=== PATIENT | female | born 1935 | race Caucasian/White ===

== ENCOUNTER 2022-05-29 09:30 | Inpatient (IN) | payer MEDICARE, BC ==
[~2022-05-29] VITALS: Ht 154.9 cm; Wt 50.8 kg
--- NOTE | 2022-05-29 09:35 | NUR ---
Pt came in via [facility]. Pt c/o headache and rapid HR. Able to go to the bathroom with minimum assistance. Hooked to the monitor. EKG and labs done. Pt's mood is angry, HR of 152, afib, with BP of 125/78. Pt is speaking in full sentences. Able to maintain saturation of 95% onRA. Pt was given minimum dos of diltiazem 10mg. Pt has low platelets in the past per daughter. She receives vit K and has hx of lymphoma.
[2022-05-29] MEDS ORDERED: DILTIAZEM HCL 25 MG IV ONE ×2 (09:53→11:02)
[2022-05-29] MEDS ORDERED: DILTIAZEM HCL IV 10 MG in IV DEXTROSE 5% 100 ML IV ONE (10:00)
[2022-05-29] MEDS ORDERED: IV NORMAL SALINE 1000 ML BAG IV ONE (10:00)
--- NOTE | 2022-05-29 10:10 | NUR ---
Pt responded to to Cardizem amd HR went from 150's to 120's.
[2022-05-29 10:17] LABS: HEMATOCRIT 40.1 % (31.2-41.9); MEAN CORPUSCULAR HEMOGLOBIN 29.3 uug (24.7-32.8); MEAN CORPUSCULAR VOLUME 87.8 fL (75.5-95.3); PLATELET COUNT (AUTO) 75 K/uL (179-408)
[2022-05-29 10:30] LABS: CARBON DIOXIDE 31 mmol/L (21-32); CHLORIDE 101 mmol/L (98-107); CREATININE 0.7 mg/dL (0.6-1.3); GLUCOSE 88 mg/dL (74-106); POTASSIUM 3.4 mmol/L (3.5-5.1); UREA NITROGEN, BLOOD 16 mg/dL (7-18)
[2022-05-29] MEDS ORDERED: DILTIAZEM HCL IV 15 MG in IV DEXTROSE 5% 100 ML IV ONE (10:30)
[2022-05-29 10:34] LABS: *BILIRUBIN,URIN NEGATIVE (NEGATIVE); *BLOOD, URINE 3+ (NEGATIVE); *CLARITY,URINE SLIGHTLY CLOUDY (CLEAR); *COLOR,URINE LIGHT YELLOW (YELLOW); *KETONES,URINE NEGATIVE (NEGATIVE); *UROBILINOGEN,URINE 0.2 E.U./dl (NORMAL); LEUKOCYTE ESTERASE ,URINE NEGATIVE (NEGATIVE); NITRITE, URINE NEGATIVE (NEGATIVE); PH,URINE 7.5 (5.0-8.0); UGLUCOSE NEGATIVE (NEGATIVE)
[2022-05-29 10:38] LABS: ALANINE AMINOTRANSFERASE 66 U/L (14-59); ALKALINE PHOSPHATASE 479 U/L (50-136); ASPARTATE AMINOTRANSFERASE 63 U/L (15-37); BILIRUBIN,DIRECT 0.5 mg/dL (0.0-0.2); BILIRUBIN,TOTAL 1.4 mg/dL (0.2-1.0); TOTAL PROTEIN, SERUM 7.1 g/dL (6.4-8.2)
--- NOTE | 2022-05-29 11:00 | NUR ---
2nd dose diltiazem 15mg given. Pt responded with HR from 162 to 106.
[2022-05-29] MEDS ORDERED: ACETAMINOPHEN 325 MG TABLET PO ONE (11:15)
[2022-05-29] MEDS ORDERED: DILTIAZEM HCL 25 MG IV IV ONE ×2 (11:15)
[2022-05-29] MEDS ORDERED: DILTIAZEM HCL IV 125 MG in IV NORMAL SALINE 100 ML IV PRN ×2 (11:15→12:45)
[2022-05-29] MEDS ORDERED: LORA-258 PO (11:21)
[2022-05-29] MEDS ORDERED: IBRU70CA PO (11:21)
[2022-05-29] MEDS ORDERED: FAMO-132 PO (11:21)
[2022-05-29] MEDS ORDERED: ACETAMINOPHEN 325 MG TABLET ONE (11:27)
[2022-05-29] MEDS ORDERED: IV NORMAL SALINE 1,000 ML IV STA (11:54)
[2022-05-29 12:14] LABS: BACTERIA,URINE NONE SEEN /HPF (NONE SEEN); RBC,URINE 50-80 /HPF (0-3); SQUAMOUS EPITHELIAL CELL,UR FEW /HPF (NONE SEEN); WBC,URINE 0-3 /HPF (0-3)
[2022-05-29] MEDS ORDERED: ONDANSETRON ODT 4 MG TAB.RAPDIS SL ONE (12:15)
[2022-05-29] MEDS ORDERED: LORAZEPAM 0.5 MG TABLET PO PRN (12:45)
[2022-05-29] MEDS ORDERED: MORPHINE SULFATE 2 MG/1 ML DISP.SYRIN IV PRN (12:45)
[2022-05-29] MEDS ORDERED: ACETAMINOPHEN 325 MG TABLET PO PRN (12:45)
[2022-05-29] MEDS ORDERED: hydrALAZINE HCL 20 MG/1 ML VIAL IV PRN (12:45)
[2022-05-29] MEDS ORDERED: ONDANSETRON 4 MG/2 ML VIAL IV PRN (12:45)
--- NOTE | 2022-05-29 13:47 | NUR ---
Pt rolled over to transition. Alma/[employer] Estimator and Anita DIAZ aware. Pt will be under the care of Anisa Overton with KARLIE status. Placed pt on a comfortable in-patient bed and attached to pure-wick to wall suction and tolerated well.
[2022-05-29] MEDS ORDERED: diphenhydrAMINE 50 MG/1 ML VIAL IV PRN (15:30)
[2022-05-29] MEDS ORDERED: HYDROMORPHONE 1 MG/1 ML DISP.SYRIN IV PRN (15:30)
[2022-05-29] MEDS ORDERED: AMIODARONE HCL IV 150 MG in IV DEXTROSE 5% 100 ML IV ONE (16:00)
[2022-05-29] MEDS: AMIODARONE HCL IV 450 MG in IV DEXTROSE 5% 250 ML IV PRN (16:15)
[2022-05-29] MEDS: DOCUSATE SODIUM 100 MG CAPSULE PO SCH (17:00)
[2022-05-29] MEDS: FAMOTIDINE 20 MG TABLET PO SCH (17:00)
[2022-05-29] MEDS ORDERED: DOCUSATE SODIUM 100 MG CAPSULE PO ONE (18:52)
[2022-05-29] MEDS ORDERED: FAMOTIDINE 20 MG TABLET ONE (18:52)
[2022-05-29] MEDS ORDERED: ENOXAPARIN SODIUM 60 MG/0.6 ML DISP.SYRIN SQ SCH (21:00)
[2022-05-29] MEDS ORDERED: POTASSIUM BICARBONATE/CIT AC 25 MEQ TABLET.EFF PO ONE (21:15)
[2022-05-29 21:45] VITALS: BP 148/74
--- NOTE | 2022-05-29 21:52 | NUR ---
Transfered to 3rd floor via gurn[facility].
[2022-05-29] MEDS: MAGNESIUM SULFATE/D5W 100 ML IV SCH ×2 (22:15→23:01)
[2022-05-30 00:21] VITALS: BP 135/68
[2022-05-30] MEDS ORDERED: POTASSIUM BICARBONATE/CIT AC 25 MEQ TABLET.EFF PO ONE (00:30)
--- NOTE | 2022-05-30 00:31 | NUR ---
[email or web address] unable to give earlier, MD dutta.
[2022-05-30] MEDS ORDERED: MAGNESIUM SULFATE/D5W 100 ML IV SCH (00:45)
[2022-05-30] MEDS ORDERED: POTASSIUM BICARBONATE/CIT AC 25 MEQ TABLET.EFF ONE (00:51)
[2022-05-30] MEDS ORDERED: AMIODARONE HCL 150 MG/3 ML VIAL IV ONE (01:00)
[2022-05-30] MEDS: AMIODARONE HCL IV 450 MG in IV DEXTROSE 5% 250 ML IV PRN (04:13)
[2022-05-30 04:23] VITALS: BP 126/67
--- NOTE | 2022-05-30 05:15 | NUR ---
Patient asleep but arousable, heart rate went down to 50's, BP 124/47, o2 sat 98%, HR 52, RR 17. no sob no chest pain, no distress, will notify menagerie caretaker.
[2022-05-30 07:31] VITALS: BP 127/50
--- NOTE | 2022-05-30 08:02 | NUR ---
RECEIVED PATIENT WIDELY AWAKE, ORIENTED X4 DENIES CHEST PAIN/RESPIRATORY DISTRESS. ON RA SATURATING 99%. ON AMIODARONE DRIP PER PROTOCOL AT 0.5MG/MIN. PATIENT NOW SB 59/MIN, WILL CONTINUE KARLIE STATUS ORDERED.
[2022-05-30 08:05] LABS: HEMATOCRIT 37.5 % (31.2-41.9); MEAN CORPUSCULAR HEMOGLOBIN 29.3 uug (24.7-32.8); MEAN CORPUSCULAR VOLUME 88.3 fL (75.5-95.3); PLATELET COUNT (AUTO) 67 K/uL (179-408)
[2022-05-30] MEDS: DOCUSATE SODIUM 100 MG CAPSULE PO SCH (08:45)
[2022-05-30] MEDS: FAMOTIDINE 20 MG TABLET PO SCH (08:46)
[2022-05-30 08:59] LABS: CREATININE 0.7 mg/dL (0.6-1.3); PHOSPHOROUS 2.9 mg/dL (2.5-4.9); POTASSIUM 4.3 mmol/L (3.5-5.1); TOTAL PROTEIN, SERUM 5.9 g/dL (6.4-8.2)
[2022-05-30] MEDS ORDERED: IBRUTINIB PO SCH (09:00)
[2022-05-30 11:31] VITALS: BP 136/46
[2022-05-30 11:52] VITALS: BP 122/44
--- NOTE | 2022-05-30 12:00 | NUR ---
AMIODARONE DRIP DISCONTINUED ORDERED BY DR ROSE AND FURTHER SAID CLEARED TO HO HOME IF STABLE WITHOUT ANTI ARRHYTHMIC MEDICATION. ALSO SEEN BY HOSPITALIST WITH DISCHARGE ORDER
[2022-05-30 13:18] LABS: EOSINOPHILS % (MANUAL) 1 % (0-8); LYMPHOCYTES % (MANUAL) 18 % (20-40); MONOCYTES % (MANUAL) 5 % (2-10); NEUTROPHILS % (MANUAL) 76 % (42-75)
--- NOTE | 2022-05-30 15:10 | NUR ---
DISCHARGED HOME STABLE SB ON MONITOR RANGES 55-58 DENIES CHEST PAIN OR SOB. DISCHARGE MEDICATION AND FOLLOW-UP INSTRUCTION TO ONCOLOGIST, INDUSTRIAL ILLUMINATING ENGINEER AND PCP GIVEN. DISCHARGE VIA PRIVATE CAR ACCOMPANIED BY DAUGHTER
== END 2022-05-30 15:10 | disposition home or self-care (01) | DRG 281 ==
LOC: ER 09:30 → OBSER 13:47 → TELE-TD3 21:29
PROVIDERS: ADMIT Internal Medicine; ATTEND Internal Medicine
DX: I48.0 Paroxysmal atrial fibrillation (principal); I21.A1 Myocardial infarction type 2; C85.90 Non-Hodgkin lymphoma, unspecified, unspecified site; D68.9 Coagulation defect, unspecified; D69.6 Thrombocytopenia, unspecified; E03.9 Hypothyroidism, unspecified; R74.01 Elevation of levels of liver transaminase levels; E87.6 Hypokalemia; R31.9 Hematuria, unspecified; R94.6 Abnormal results of thyroid function studies; E80.6 Other disorders of bilirubin metabolism; Z20.822 Contact with and (suspected) exposure to COVID-19
CPT/HCPCS: 36415; 70030-TC; 71045; 83735; 84100; 84443; 84484; 85025; 85610; 85730; 86850; 86900; 86901; 93005; 93307; G0378; J0282; J3475; J3490; J7040; J7050

== ENCOUNTER 2022-08-15 14:18 | Emergency (ER) | payer MEDICARE, BC ==
[~2022-08-15] VITALS: Ht 154.9 cm; Wt 54.9 kg
[~2022-08-15 14:18] MED LIST: FAMO-132 PO; IBRU70CA PO; LORA-258 PO
--- NOTE | 2022-08-15 15:00 | NUR ---
Pt was triaged and brought back to the ER waiting room in w/c, daughter with pt. There are no ER beds available.
[2022-08-15] MEDS ORDERED: ACETAMINOPHEN 325 MG TABLET PO ONE (15:30)
[2022-08-15] MEDS ORDERED: diphenhydrAMINE 50 MG/1 ML VIAL IV ONE (15:30)
--- NOTE | 2022-08-15 15:34 | NUR ---
Pt placed in room 1A.
[2022-08-15 15:57] LABS: MEAN CORPUSCULAR HEMOGLOBIN 28.9 uug (24.7-32.8); MEAN CORPUSCULAR VOLUME 93.3 fL (75.5-95.3); PLATELET COUNT (AUTO) 105 K/uL (179-408)
[2022-08-15] MEDS ORDERED: diphenhydrAMINE 50 MG/1 ML VIAL ONE (16:05)
[2022-08-15] MEDS ORDERED: ACETAMINOPHEN 325 MG TABLET ONE (16:05)
[2022-08-15 16:12] LABS: IRON, SERUM 10 ug/dL (50-175)
[2022-08-15 16:19] LABS: ALANINE AMINOTRANSFERASE 74 U/L (14-59); ALKALINE PHOSPHATASE 319 U/L (50-136); ASPARTATE AMINOTRANSFERASE 61 U/L (15-37); BILIRUBIN,DIRECT 0.2 mg/dL (0.0-0.2); BILIRUBIN,TOTAL 0.4 mg/dL (0.2-1.0); CARBON DIOXIDE 31 mmol/L (21-32); CHLORIDE 103 mmol/L (98-107); CREATININE 0.7 mg/dL (0.6-1.3); GLUCOSE 99 mg/dL (74-106); POTASSIUM 3.9 mmol/L (3.5-5.1); TOTAL PROTEIN, SERUM 5.8 g/dL (6.4-8.2); UREA NITROGEN, BLOOD 14 mg/dL (7-18)
[2022-08-15 16:28] LABS: FERRITIN 22 ng/mL (8-252)
[2022-08-15 16:34] LABS: HEMATOCRIT 19.8 % (31.2-41.9)
--- NOTE | 2022-08-15 19:18 | NUR ---
RUMA sandhu Melvina RN
--- NOTE | 2022-08-15 19:20 | NUR ---
Consent signed by patient's daughter Stephanie Beckham 08/15/22 @ 5:25pm agreeing to administration of blood. Patient or responsible constitution party informed of potential complications associated with blood transfusion. Information on unit of blood checked against patient wristband at bedside by two nurses. All information matches. Patient made aware of need to notify nurse at once if begins to experience itching, shortness of breath, flushing, feeling of impending doom, or other symptoms not previously present.
--- NOTE | 2022-08-15 19:24 | NUR ---
Endorsed to Karime GORDILLO.
--- NOTE | 2022-08-15 20:28 | NUR ---
Blood transfusion started.
--- NOTE | 2022-08-15 20:29 | NUR ---
Blood transfusion started slowly 60ml/hr. Will run at same rate for 15 mins.
--- NOTE | 2022-08-15 20:30 | NUR ---
Patient is able to tolerate the bloood transfusion. Patient is a/ox4, NAD noted. no fever, no allergic reaction noted
--- NOTE | 2022-08-15 20:45 | NUR ---
blood tranfused for 15 mins @60/ml per hour. Will increase to 100ml/hr
--- NOTE | 2022-08-15 20:46 | NUR ---
blood transfusion increased to 100/ml over 2 hours
[2022-08-15] MEDS ORDERED: FUROSEMIDE 40 MG/4 ML VIAL IV ONE (22:00)
--- NOTE | 2022-08-15 22:07 | NUR ---
per Dr Holder, increase the blood transfusion rate to 200ml/hr
[2022-08-15] MEDS ORDERED: FUROSEMIDE 40 MG/4 ML VIAL ONE (23:28)
--- NOTE | 2022-08-16 00:30 | NUR ---
Second bag of PRBC infusing at 100ml/hr.
--- NOTE | 2022-08-16 00:45 | NUR ---
Patient tolerating blood transfusion well. No SOB, no fever, no signs of allergic reaction. PRBC infusing at 265.5ml/hr
--- NOTE | 2022-08-16 02:40 | NUR ---
Blood transfusion completed. Patient tolerated transfusion well. Vital signs stable. No SOB, no fever, no signs of allergic reaction. Awaiting for CBC redraw.
[2022-08-16 03:17] LABS: HEMATOCRIT 27.7 % (31.2-41.9); MEAN CORPUSCULAR HEMOGLOBIN 29.6 uug (24.7-32.8); MEAN CORPUSCULAR VOLUME 90.5 fL (75.5-95.3); PLATELET COUNT (AUTO) 96 K/uL (179-408)
[2022-08-16] MEDS ORDERED: LORAZEPAM 0.5 MG TABLET ONE (03:43)
[2022-08-16] MEDS ORDERED: MORPHINE SULFATE 4 MG/1 ML DISP.SYRIN ONE ×2 (03:43→03:51)
[2022-08-16] MEDS ORDERED: MORPHINE SULFATE 4 MG/1 ML DISP.SYRIN IV ONE (03:45)
[2022-08-16] MEDS ORDERED: LORAZEPAM 0.5 MG TABLET PO ONE (03:45)
--- NOTE | 2022-08-16 03:46 | NUR ---
pulled out Morphine 4mg from [facility]. Packaging was defective. Top cap came off and medication was spilled. vial returned. Holley GORDILLO witnessed. Will pull out another vial
--- NOTE | 2022-08-16 06:35 | NUR ---
Patient does not wish to proceed with medical care recommended by Dr. Holder. Patient given information related to possible complications, up to and including , which could occur as a result of leaving the hospital at this time. Patient verbalizes understanding of risks involved due to leaving against medical advice. Patient has signed AMA form. Daughter at bedside witnessing signing the AMA form.
--- NOTE | 2022-08-16 06:37 | NUR ---
Patient was discharged to home accompanied by daughter. Pt AOx4, NAD noted. IV saline lock removed. Skin intact. Patient able to walk with cane.
[2022-08-16 06:38] VITALS: BP 144/63
== END 2022-08-16 06:40 | disposition left against medical advice (07) ==
LOC: ER 14:18
DX: C85.90 Non-Hodgkin lymphoma, unspecified, unspecified site (principal); D63.0 Anemia in neoplastic disease; D64.81 Anemia due to antineoplastic chemotherapy; Z20.822 Contact with and (suspected) exposure to COVID-19; R77.8 Other specified abnormalities of plasma proteins; G89.29 Other chronic pain; M54.9 Dorsalgia, unspecified; I48.91 Unspecified atrial fibrillation; K21.9 Gastro-esophageal reflux disease without esophagitis; F41.9 Anxiety disorder, unspecified; I89.0 Lymphedema, not elsewhere classified
CPT/HCPCS: 80076; 80048; 82728; 83880; 83550; 85025 ×2; 85730; 86850; 86900; 86901; 86920 ×2; 87426; 84484 ×3; 36415 ×2; 93005; 71045; 99285; 96374; 96375 ×2; P9016 ×2; J1200; J1940; J2270; A4663